=== PATIENT | female | born 1950 | race Caucasian/White ===

== ENCOUNTER 2018-10-24 10:02 | Emergency (ER) | payer MEDICARE ==
--- NOTE | 2018-10-24 10:52 | EDM.PDOC ---
ED HPI GENERAL MEDICAL PROBLEM - General Chief Complaint: Lower Extremity Injury/Pain Stated Complaint: KNEE Time Seen by Provider: 10/24/18 10:11 Source of Information: Reports: Patient, Old Records, RN, RN Notes Reviewed History Limitations: Reports: No Limitations - History of Present Illness INITIAL COMMENTS - FREE TEXT/NARRATIVE: Patient presents to the ED at [facility] complaining of right knee pain, swelling, and redness. She states about 4 days ago, she jumped of a step and thinks she may have injured the right knee. She did not really think anything was wrong initially, until 2 days ago when she noticed the redness and swelling. Pain shortly ensued. She states it is painful to walk on the right leg due to pain. She denies any previous injury or trauma. She has a history of gout and is currently taking Allopurinol. No previous right knee surgeries. She states the right knee is very tender to touch. She denies any numbness, tingling , or paresthesia of the right lower extremity. Her baseline ROM is normal. Redness is more anterior. The is some swelling but nothing significant. Patient is currently under the care of [facility] out [facility]. She is being treated for low back pain issues. She is on Flexeril for her back. She has had back injections in the past but states "those don't work." Her most recently visit with pain clinic was 09/07/2018 for ankle pain. She was offered an xray an refused. She was offered injections but stated she wanted to wait. [facility] notes reviewed via [facility]. Onset Date: 10/20/18 Right Knee Pain Score (Numeric/FACES): 10 - Related Data Allergies Allergy/AdvReac Type Severity Reaction Status Date / Time cephalexin [From Keflex] Allergy Hives Verified 10/24/18 10:19 MRI dye Allergy Swelling Uncoded 10/24/18 10:19 Past Medical History HEENT History: Reports: Sinusitis Cardiovascular History: Reports: Hypertension, Other (See Below) Other Cardiovascular History: AAA aneurysm Respiratory History: Reports: COPD, Other (See Below) Other Respiratory History: chronic cough. R pulmonary nodule Genitourinary History: Reports: Renal Calculus, Renal Disease, Other (See Below) Other Genitourinary History: renal cyst. glomerulonephritis Musculoskeletal History: Reports: Back Pain, Chronic, Gout, Osteoporosis, Other (See Below) Other Musculoskeletal History: lumbar scoliosis. left sacrolilitis. sciatica on the left. lumbar DDD Psychiatric History: Reports: Depression Endocrine/Metabolic History: Reports: Diabetes, Type II, Hyperparathyroidism Dermatologic History: Reports: Other (See Below) Other Dermatologic History: lichen planus - Past Surgical History Musculoskeletal Surgical History: Reports: Other (See Below) Other Musculoskeletal Surgeries/Procedures:: laminectomy Social & Family History - Tobacco Use Smoking Status *Q: Current Every Day Smoker Years of Tobacco use: 15 Packs/Tins Daily: 1 - Recreational Drug Use Recreational Drug Use: No Review of Systems - Review of Systems Review Of Systems: See Below Constitutional: Denies: Chills, Fever Respiratory: Denies: Shortness of Breath, Cough Cardiovascular: Denies: Chest Pain, Palpitations Musculoskeletal: Reports: Leg Pain, Joint Pain, Joint Swelling, Muscle Pain Skin: Reports: Erythema (right knee) Neurological: Reports: No Symptoms ED EXAM, GENERAL - Physical Exam Exam: See Below Exam Limited By: No Limitations General Appearance: Alert, No Apparent Distress Respiratory/Chest: No Respiratory Distress, Lungs Clear, Normal Breath Sounds Cardiovascular: Normal Peripheral Pulses, Regular Rate, Rhythm Peripheral Pulses: 2+: Posterior Tibial (R), Dorsalis Pedis (R) Extremities: Joint Swelling, Leg Pain, Limited Range of Motion, Increased Warmth , Redness Neurological: Alert, Oriented Skin Exam: Warm, Dry, Intact Course - Vital Signs Last Recorded V/S: Last Vital Signs Temp 36.7 C 10/24/18 10:10 Pulse 87 10/24/18 10:10 Resp 18 10/24/18 10:10 BP 150/82 H 10/24/18 10:10 Pulse Ox 95 10/24/18 10:10 - Orders/Labs/Meds Orders: Active Orders 24 hr Category Date Time Status Knee 3V Rt [CR] Stat Exams 10/24/18 10:16 Taken CREATINE KINASE,CK [CHEM] Stat Lab 10/24/18 10:58 Received URIC ACID [CHEM] Stat Lab 10/24/18 10:58 Received Labs: Laboratory Tests 10/24/18 Range/Units 10:58 WBC 15.6 H (4.0-10.0) x10^3/uL RBC 4.44 (4.00-5.50) x10^6/uL Hgb 12.7 (12.0-16.0) g/dL Hct 39.9 (33.0-47.0) % MCV 89.9 (78.0-93.0) fL MCH 28.6 (26.0-32.0) pg MCHC 31.8 L (32.0-36.0) g/dL RDW Coeff of Marly 15.6 H (10.0-15.0) % Plt Count 379 (130-400) x10^3/uL Neut % (Auto) 70.9 (50.0-80.0) % Lymph % (Auto) 18.0 L (25.0-50.0) % Randall % (Auto) 8.5 (2.0-11.0) % Eos % (Auto) 2.2 (0.0-4.0) % Baso % (Auto) 0.4 (0.2-1.2) % Departure - Departure Time of Disposition: 11:14 Disposition: Home, Self-Care 01 Condition: Good Clinical Impression: Cellulitis Qualifiers: Site of cellulitis: extremity Site of cellulitis of extremity: lower extremity Laterality: right Qualified Code(s): L03.115 - Cellulitis of right lower limb Right knee injury Qualifiers: Encounter type: initial encounter Qualified Code(s): S89.91XA - Unspecified injury of right lower leg, initial encounter - Discharge Information *PRESCRIPTION DRUG MONITORING PROGRAM REVIEWED*: Yes *COPY OF PRESCRIPTION DRUG MONITORING REPORT IN PATIENT SCOTTY: Yes Instructions: Cellulitis, Adult Referrals: Cony Mckeon MD [Ordering Only Provider] - Forms: ED Department Discharge Additional Instructions: 1. Stay well hydrated and rest 2. Rest, elevate, and ice right knee several times a day 3. Take antibiotic for the full coarse, even if you are feeling better 4. Call [facility] for your pain needs 5. Keep RACHEL wrap on to help with swelling 6. See your PCP in one week for a followup to make sure everything is improving - Problem List Review Problem List Initiated/Reviewed/Updated: Yes - My Orders Last 24 Hours: My Active Orders 10/24/18 10:16 Knee 3V Rt [CR] Stat 10/24/18 10:58 CREATINE KINASE,CK [CHEM] Stat URIC ACID [CHEM] Stat - Assessment/Plan Last 24 Hours: My Active Orders 10/24/18 10:16 Knee 3V Rt [CR] Stat 10/24/18 10:58 CREATINE KINASE,CK [CHEM] Stat URIC ACID [CHEM] Stat Assessment:: Right knee injury Cellulitis Right knee Plan: Labs and xray were discussed with patient. Will start on a 10 day course of Clindamycin. Recommend rest, elevate, and ice several times a day. No activity restrictions. May use knee normally. Recommend followup with PCP in one week for a recheck Patient requested pain medication. This request was declined. Recommend she call her Pain Clinic or PCP if she feels she needs anything stronger than Tylenol/Advil.
--- NOTE | 2018-10-24 11:33 | CR ---
[id number] RAD/RAD Knee Right 3V EXAM: RAD Knee Right 3V CLINICAL DATA: TRAUMA. PAIN. SWELLING. ERYTHEMA. COMPARISON: NO PREVIOUS SIMILAR EXAM IS AVAILABLE. FINDINGS: There is prepatellar soft tissue swelling. There is no fracture or dislocation. There is no radiopaque foreign body. There is no air in the soft tissues.. IMPRESSION: APPEARANCE OF PREPATELLAR BURSITIS. HERE CLINICAL CORRELATION IS NEEDED. Osvaldo Romero MD 10/24/18 [id number] Thank you for allowing us to participate in the care of your patient.
== END 2018-10-24 11:30 | disposition home or self-care (01) ==
LOC: VM.ED 10:02
DX: L03.115 Cellulitis of right lower limb (principal); S89.91XA Unspecified injury of right lower leg, initial encounter; I10 Essential (primary) hypertension; F17.210 Nicotine dependence, cigarettes, uncomplicated; Z91.041 Radiographic dye allergy status; X50.9XXA Other and unspecified overexertion or strenuous movements or postures, initial encounter; Y93.39 Activity, other involving climbing, rappelling and jumping off
CPT/HCPCS: 36415; 73562-RT; 82550; 84550; 85025; 99283; 99283-GF

== ENCOUNTER 2019-03-03 11:24 | Emergency (ER) | payer MEDICARE ==
--- NOTE | 2019-03-03 11:51 | EDM.PDOC ---
ED HPI GENERAL MEDICAL PROBLEM - General Chief Complaint: Upper Extremity Injury/Pain Stated Complaint: FELL AND HURT ARM/SHOULDER Time Seen by Provider: 03/03/19 11:35 Source of Information: Reports: Patient, Family History Limitations: Reports: No Limitations - History of Present Illness INITIAL COMMENTS - FREE TEXT/NARRATIVE: Patient comes into the emergency department with complaint of left shoulder pain. Patient states that she was at home and bleeding across her kitchen when she tripped over an object on the floor falling on her left shoulder. She denies hitting her head or any other body orifice. She states that she noted left arm pain right away but did not hear a popping sensation. She states that she has limited range of motion of the left shoulder. She states it feels better she does not move it, it hurts worse if she tries to lift her arm or rotate her arm up. Her major concern is she is slated for open heart surgery in 3 days and is concerned regarding that surgery with any potential injury she has now. She denies any other concerns or complaints. Onset: Sudden Quality: Reports: Sharp, Throbbing Severity: Moderate Improves with: Reports: Immobilization Worsens with: Reports: Movement Context: Reports: Other Associated Symptoms: Reports: No Other Symptoms Left Shoulder Pain Score (Numeric/FACES): 10 - Related Data Allergies Allergy/AdvReac Type Severity Reaction Status Date / Time cephalexin [From Keflex] Allergy Hives Verified 03/03/19 11:35 Gadolinium-Containing Allergy Edema Verified 03/03/19 12:09 Contrast Medi Penicillins Allergy Hives Verified 03/03/19 12:09 MRI dye Allergy Swelling Uncoded 03/03/19 11:35 Home Meds: Home Meds Albuterol Sulfate [Proair Respiclick] 2 inh IH Q4H PRN 03/03/19 [History] Allopurinol [Zyloprim] 100 mg DAILY 03/03/19 [History] Cyclobenzaprine [Flexeril] 10 mg BID PRN 03/03/19 [History] Gabapentin [Neurontin] 300 mg DAILY 03/03/19 [History] Omeprazole 40 mg PO DAILY 03/03/19 [History] Simvastatin [Zocor] 40 mg BEDTIME 03/03/19 [History] buPROPion [buPROPion XL] 150 mg BID 03/03/19 [History] dilTIAZem HCl [Diltiazem 24Hr ER (Xr)] 2 tab DAILY 03/03/19 [History] glipiZIDE [Glucotrol] 10 mg BID 03/03/19 [History] Past Medical History HEENT History: Reports: Sinusitis Cardiovascular History: Reports: Hypertension, Other (See Below) Other Cardiovascular History: AAA aneurysm Respiratory History: Reports: COPD, Other (See Below) Other Respiratory History: chronic cough. R pulmonary nodule Genitourinary History: Reports: Renal Calculus, Renal Disease, Other (See Below) Other Genitourinary History: renal cyst. glomerulonephritis Musculoskeletal History: Reports: Back Pain, Chronic, Gout, Osteoporosis, Other (See Below) Other Musculoskeletal History: lumbar scoliosis. left sacrolilitis. sciatica on the left. lumbar DDD Psychiatric History: Reports: Depression Endocrine/Metabolic History: Reports: Diabetes, Type II, Hyperparathyroidism Dermatologic History: Reports: Other (See Below) Other Dermatologic History: lichen planus - Past Surgical History Musculoskeletal Surgical History: Reports: Other (See Below) Other Musculoskeletal Surgeries/Procedures:: laminectomy Review of Systems - Review of Systems Review Of Systems: ROS reveals no pertinent complaints other than HPI. Constitutional: Reports: No Symptoms Ears: Reports: No Symptoms Nose: Reports: No Symptoms Mouth/Throat: Reports: No Symptoms Musculoskeletal: Reports: Shoulder Pain Skin: Reports: No Symptoms Neurological: Reports: No Symptoms ED EXAM, GENERAL - Physical Exam Exam: See Below Exam Limited By: No Limitations General Appearance: Alert, WD/WN, No Apparent Distress Head: Atraumatic, Normocephalic Neck: Normal Inspection, Supple, Non-Tender Respiratory/Chest: No Respiratory Distress, Lungs Clear, Normal Breath Sounds Cardiovascular: Normal Peripheral Pulses, Regular Rate, Rhythm Extremities: Arm Pain (left shoulder-CMS intact. no hematoma, deformity, redness noted. ), Limited Range of Motion Neurological: Alert, Oriented Psychiatric: Normal Affect, Normal Mood Skin Exam: Warm, Dry, Intact, Normal Color Course - Vital Signs Last Recorded V/S: Last Vital Signs Temp 36.2 C 03/03/19 11:24 Pulse 88 03/03/19 11:24 Resp 20 03/03/19 11:24 BP 145/93 H 03/03/19 11:24 Pulse Ox 95 03/03/19 11:24 Departure - Departure Time of Disposition: 13:05 Disposition: Home, Self-Care 01 Condition: Fair Clinical Impression: Left humeral fracture Qualifiers: Encounter type: initial encounter Humerus Location: greater tuberosity Fracture type: closed Fracture alignment: displaced Qualified Code(s): S42.252A - Displaced fracture of greater tuberosity of left humerus, initial encounter for closed fracture - Discharge Information *PRESCRIPTION DRUG MONITORING PROGRAM REVIEWED*: Not Applicable *COPY OF PRESCRIPTION DRUG MONITORING REPORT IN PATIENT SCOTTY: Not Applicable Instructions: Humerus Fracture Treated With Immobilization, [id number] Referrals: PCP,Not In Area [Primary Care Provider] - Forms: ED Department Discharge Additional Instructions: 1. rest 2. non weight bearing to that left arm 3. Call your surgeon Tuesday am to ensure you can still have surgery that is scheduled for Tuesday. 4. Need to follow up with Ortho in 1-2 weeks to schedule surgery 5. Take hydrocodone only as needed for severe pain. take ibuprofen or Tylenol as needed for mild or intermittent pain 6. Can use ice for 20 mins over the affected area 3-4 times a day 7. diet as tolerated 8. Call with any questions or concerns. - Problem List Review Problem List Initiated/Reviewed/Updated: Yes - Assessment/Plan Assessment:: 1. left humeral neck fracture-complex comminuted Plan: 1. Left shoulder pain- left humeral neck fracture comminuted and impacted 2. Consult completed with [facility] and orthopedic surgery. It is found that the patient will not undergo surgery for her arm within the next 1-2 weeks. Cardiovascular surgery feels that the open heart surgery scheduled for Tuesday can go as scheduled however it's recommended that she call her primary surgeon on Tuesday for further direction. 3. Shoulder immobilizer left arm was applied to the patient in the emergency department 4. prescription for hydrocodone 5/325mg with recommendations take one tablet every 4-6 hours for severe pain. She is advised to take Tylenol and ibuprofen intermittently or [id number] pain. 5. Patient is given education regarding this shoulder immobilization, medication management, follow-up, and surgery recommendations. 6. All questions and concerns addressed prior to discharge
--- NOTE | 2019-03-03 12:26 | CR ---
[id number] RAD/RAD Shoulder Left 2V Min EXAM: RAD Shoulder Left 2V Min CLINICAL DATA: TRAUMA COMPARISON: NO PREVIOUS SIMILAR EXAM IS AVAILABLE. FINDINGS: A comminuted impacted proximal left humeral neck fracture is seen. There is inferior subluxation of the humeral head from the glenoid fossa.. IMPRESSION: COMPLEX COMMINUTED IMPACTED SUBLUXED LEFT HUMERAL NECK FRACTURE. Osvaldo Romero MD 03/03/19 [id number] Thank you for allowing us to participate in the care of your patient.
== END 2019-03-03 13:15 | disposition home or self-care (01) ==
LOC: VM.ED 11:24
DX: S42.252A Displaced fracture of greater tuberosity of left humerus, initial encounter for closed fracture (principal); I10 Essential (primary) hypertension; E11.9 Type 2 diabetes mellitus without complications; F32.9 Major depressive disorder, single episode, unspecified; Z88.8 Allergy status to other drugs, medicaments and biological substances; Z79.899 Other long term (current) drug therapy; Z79.84 Long term (current) use of oral hypoglycemic drugs; Z88.1 Allergy status to other antibiotic agents
CPT/HCPCS: 73030-LT; 99283-25; 99283-GF